=== PATIENT | female | born 1960 | race Hispanic/Latino ===

== ENCOUNTER 2017-06-14 20:48 | Emergency (ER) | payer BC ==
[~2017-06-14] VITALS: Ht 162.6 cm; Wt 68.9 kg
[~2017-06-14 20:48] MED LIST: CEFUROXIME250 MG PO; CIPRO500 MG PO; DICYCLOMINE HCL20 MG PO; GAVISCON ES TA1 EACH PO; Ibuprofen PO; LORAZEPAM1 MG PO; LOVASTATIN20 MG PO; METFORMIN HCL500 MG PO; OMEPRAZOLE40 MG PO; PROPRANOLOL HCL40 MG PO; TYLENOL WITH C1 EACH PO; ZOFRAN4 MG PO
[2017-06-14] MEDS ORDERED: ACETAMINOPHEN 1000 MG/100 ML IV STA (20:58)
[2017-06-14] MEDS ORDERED: ONDANSETRON HCL INJ 2 MG/ML VIAL IV STA (20:58)
[2017-06-14] MEDS ORDERED: SODIUM CHLORIDE 0.9% 1000ML 1,000 ML IV ONE ×2 (21:00→23:30)
[2017-06-14 21:39] LABS: BASOPHILS % 0.2 % (0.0-1.0); EOSINOPHILS # (AUTO) 0.1 (0.0-0.4); EOSINOPHILS % 0.4 % (0.0-6.0); HEMATOCRIT 39.1 % (34.2-44.1); HEMOGLOBIN 13.4 g/dL (12.0-16.0); LYMPHOCYTES # (AUTO) 2.2 (1.0-3.2); LYMPHOCYTES % 16.3 % (18.0-39.1); MEAN CORPUSCULAR HGB CONC 34.3 g/dL (31-35); MEAN CORPUSCULAR VOLUME 78.7 fL (81-99); MONOCYTES # (AUTO) 0.9 (0.2-0.8); MONOCYTES % 6.5 % (4.4-11.3); NEUTROPHILS # (AUTO) 10.1 (2.1-6.9); NEUTROPHILS % 76.2 % (38.7-80.0); PLATELET COUNT 261 x10e3/uL (140-360); RED BLOOD COUNT 4.97 x10e6/uL (3.6-5.1); RED CELL DISTRIBUTION WIDTH 13.5 % (11.7-14.4)
[2017-06-14 22:02] LABS: ALANINE AMINOTRANSFERASE 24 IU/L (0-55); ALBUMIN 3.9 g/dL (3.5-5.0); ALBUMIN/GLOBULIN RATIO 1.1 (0.8-2.0); ALKALINE PHOSPHATASE 208 IU/L (40-150); AMYLASE 47 U/L (25-125); ANION GAP 16.4 mmol/L (8-16); BLOOD UREA NITROGEN 13 mg/dL (7-26); BUN/CREATININE RATIO 15 (6-25); CARBON DIOXIDE 21 mmol/L (22-29); CHLORIDE 99 mmol/L (98-107); CREATININE, SERUM 0.84 mg/dL (0.57-1.11); EST GLOMERULAR FILTRATION RATE > 60 ML/MIN (60-); GLUCOSE 223 mg/dL (74-118); LIPASE 24 U/L (8-78); POTASSIUM 3.4 mmol/L (3.5-5.1); SODIUM 133 mmol/L (136-145)
[2017-06-14 22:05] LABS: BILIRUBIN,URINE NEGATIVE (NEGATIVE); KETONES,URINE TRACE (NEGATIVE); LEUKOCYTE ESTERASE ,URINE NEGATIVE (NEGATIVE); NITRITE,URINE NEGATIVE (NEGATIVE); URINE UROBILINOGEN 0.2 mg/dL (0.2 - 1)
[2017-06-14 22:13] LABS: CLARITY,URINE HAZY (CLEAR); COLOR,URINE YELLOW (YELLOW); PROTEIN,URINE DIPSTICK 2+ (NEGATIVE)
[2017-06-14 22:18] LABS: BACTERIA,URINE RARE /HPF; EPITHELIAL CELLS,URINE RARE /LPF; RBC,URINE 21-50 /HPF (0-5)
--- NOTE | 2017-06-14 22:20 | Diagnostic Imaging Report ---
CHEST SINGLE (PORTABLE), 06/14/2017 8:58 PM Technique: CHEST SINGLE (PORTABLE) Comparison: 04/17/2016 Clinical history: Fever Findings: See Impression Impression: 1. Stable cardiomediastinal silhouette. 2. No consolidation or edema. No effusion or pneumothorax. Signed by: Dr Maryanne Turk MD on 06/14/2017 10:16 PM
--- NOTE | 2017-06-14 23:19 | Diagnostic Imaging Report ---
EXAM: US GALLBLADDER DATE: 06/14/2017 12:00 AM INDICATION: Right upper quadrant pain, fever COMPARISON: None TECHNIQUE: Transverse and longitudinal samson scale and color doppler sonographic images of the upper abdomen were obtained. FINDINGS: LIVER 15 cm in the right midclavicular line. Increased echogenicity, normal contour, no masses. GALLBLADDER Not well visualized due to overlying bowel gas. No stones, sludge, wall-thickening or pericholecystic fluid. Negative sonographic Ferrell's sign. BILE DUCTS No intra nor extra-hepatic biliary dilation. Common bile duct measures 0.6 cm PANCREAS: Not well-visualized due to overlying bowel gas. RIGHT KIDNEY: 11.3 cm Echogenicity: Normal Collecting System: No hydronephrosis Stones: None Cyst/Mass: None VESSELS: Aorta: Not well-visualized due to overlying bowel gas Inferior Vena Cava: Visualized portions are normal Main Portal Vein: 0.8 cm, normal size with hepatopetal flow. FREE FLUID: None IMPRESSION: Hepatic steatosis. No cholelithiasis or evidence of acute cholecystitis. Signed by: Dr Maryanne Turk MD on 06/14/2017 11:16 PM
--- NOTE | 2017-06-15 02:02 | Diagnostic Imaging Report ---
EXAM: CT ABDOMEN/PELVIS W DATE: 06/14/2017 11:24 PM INDICATION: Abdominal pain COMPARISON: None TECHNIQUE: The abdomen and pelvis were scanned using a multidetector helical scanner. Coronal and sagittal reformations were obtained. Routine protocol performed. IV Contrast: 100 ml Isovue 370 FINDINGS: LOWER THORAX: No consolidations LIVER/BILIARY: Hepatic steatosis. No masses. No ductal dilatation. Tiny focus of gas near the ampulla (axial image 32), nonspecific but may be within a tiny duodenal diverticulum or related to prior stone passage or sphincterotomy. GALLBLADDER: Unremarkable SPLEEN: Unremarkable PANCREAS: Unremarkable ADRENALS: No nodules KIDNEYS: Symmetric perfusion. No enhancing masses. No hydronephrosis. GI TRACT: No wall thickening or evidence of obstruction. Normal appendix. VESSELS: Minimal atherosclerotic disease. PERITONEUM/RETROPERITONEUM: Trace pelvic free fluid. LYMPH NODES: No lymphadenopathy REPRODUCTIVE ORGANS/BLADDER: Unremarkable SOFT TISSUES: Unremarkable BONES: No suspicious bone lesions. IMPRESSION: No acute abnormality. Signed by: Dr Maryanne Turk MD on 06/15/2017 1:59 AM
[2017-06-15] MEDS ORDERED: IOPAMIDOL 370 MG/ML 200 ML INFUS..BTL INJ ONE (04:06)
[2017-06-15] MEDS ORDERED: SODIUM CHLORIDE 0.9% 50ML 50 ML ONE (04:06)
== END 2017-06-15 03:00 | disposition home or self-care (01) ==
LOC: ER 20:48
DX: R50.9 Fever, unspecified (principal); R10.11 Right upper quadrant pain; R11.2 Nausea with vomiting, unspecified; A08.11 Acute gastroenteropathy due to Norwalk agent; E11.65 Type 2 diabetes mellitus with hyperglycemia; E03.9 Hypothyroidism, unspecified
CPT/HCPCS: 36415; 71045; 74177; 76705; 80053; 81001; 82150; 83605; 83690; 85025; 87400; 93005; 96360; 96365; 96374; 99284; J2405; J7030; Q9967

== ENCOUNTER → 2017-10-17 | Outpatient (CLI) | payer BC ==
--- NOTE | 2017-10-17 17:48 | Diagnostic Imaging Report ---
PROCEDURE: CT ABDOMEN AND PELVIS WITHOUT CONTRAST TECHNIQUE: The abdomen and pelvis were scanned utilizing a multidetector helical scanner from the diaphragm to the lesser trochanter after the oral administration of water. Coronal and sagittal multiplanar reformations were obtained. COMPARISON: CT of the abdomen and pelvis from 06/15/2017 INDICATIONS: right flank pain for 10 days FINDINGS: ABSENCE OF INTRAVENOUS CONTRAST DECREASES SENSITIVITY FOR DETECTION OF FOCAL LESIONS AND VASCULAR PATHOLOGY. LOWER THORAX: Calcified granuloma in the right lung base. HEPATOBILIARY: Diffuse hepatic steatosis. No focal hepatic lesions. No biliary ductal dilatation. Stable small focus of gas density near the distal CBD (series 3, image 75) may be due to a small duodenal diverticulum SPLEEN: No splenomegaly. PANCREAS: No focal masses or ductal dilatation. ADRENALS: No adrenal nodules. KIDNEYS/URETERS: No hydronephrosis, stones, or solid mass lesions. PELVIC ORGANS/BLADDER: Unremarkable. PERITONEUM / RETROPERITONEUM: No free air or fluid. LYMPH NODES: No lymphadenopathy. VESSELS: Mild atherosclerotic ossification of the aorta and its branches. GI TRACT: No distention or wall thickening. Moderate amount of stool throughout the colon. The appendix is normal. BONES AND SOFT TISSUES: Mild multilevel degenerative changes of the thoracic and lumbar spine. IMPRESSION: No specific findings to explain the patient's symptoms. No renal or ureteral stones. Diffuse hepatic steatosis. Dictated by: Servando Olmstead M.D. on 10/17/2017 at 17:53 Electronically approved by: Servando Olmstead M.D. on 10/17/2017 at 17:53
== END ==
LOC: CT 15:36
PROVIDERS: ATTEND Internal Medicine Gastroenterology
DX: R10.9 Unspecified abdominal pain (principal)
CPT/HCPCS: 74176